=== PATIENT | male | born 1990 | race Caucasian/White ===

== ENCOUNTER 2018-03-05 08:47 | Emergency (ER) | payer OTHER ==
[~2018-03-05] VITALS: Ht 167.6 cm; Wt 97.7 kg
[2018-03-05 08:52] VITALS: BP 155/91
== END 2018-03-05 10:37 | disposition home or self-care (01) ==
LOC: ED 10:14
DX: S83.015A Lateral dislocation of left patella, initial encounter (principal); W18.39XA Other fall on same level, initial encounter; Y93.89 Activity, other specified; Y92.098 Other place in other non-institutional residence as the place of occurrence of the external cause; Y99.8 Other external cause status; G89.11 Acute pain due to trauma
CPT/HCPCS: 29505; 99284